=== PATIENT | male | born 1975 | race African-American/Black ===

== ENCOUNTER 2020-02-14 03:13 | Emergency (ER) | payer OTHER ==
[2020-02-14 04:16] LABS: #Basophils 0.1 thou/uL (0.0-0.2); #Eosinphils 0.4 thou/uL (0.0-0.7); #Lymphocytes 2.8 thou/uL (1.20-3.40); #Monocytes 0.9 thou/uL (0.11-0.59); #Neutrophils 5.6 thou/uL (1.40-6.50); %Basophils 0.9 % (0.0-1.0); %Eosinophils 3.7 % (0.0-10.0); %Lymphocytes 28.5 % (21.0-51.0); %Monocytes 9.5 % (0.0-10.0); %Neutrophils 57.5 % (42.0-75.0); Hemoglobin 15.3 g/dL (14.0-18.0); Mean Corpuscular HGB CONC 35.5 g/dL (32.0-36.0); Mean Corpuscular Hemoglobin 30.1 pg (27.0-31.0); Mean Corpuscular Volume 84.6 fL (78.0-98.0); Mean Platelet Volume 9.3 fL (7.4-10.4); Platelet Count 264 thou/uL (130-400); White Blood Cell (WBC) Count 9.8 thou/uL (4.8-10.8)
[2020-02-14 04:40] LABS: ALT (SGPT) 20 U/L (8-55); AST (SGOT) 18 U/L (5-34); Albumin 4.3 g/dL (3.5-5.0); Alkaline Phosphatase 72 U/L (40-110); Anion Gap 12 mmol/L (10-20); BUN (Urea Nitrogen) 9 mg/dL (8.9-20.6); Bilirubin, Total 0.7 mg/dL (0.2-1.2); Calc. Creatinine Clearance 0 mL/min (70-130); Calcium 9.2 mg/dL (7.8-10.44); Carbon Dioxide 28 mmol/L (22-29); Chloride 102 mmol/L (98-107); Estimated GFR-MDRD 69; Globulin 3.5 g/dL (2.4-3.5); Glucose 102 mg/dL (70-105); Lipase 15 U/L (8-78); Protein, Total 7.8 g/dL (6.0-8.3); Sodium 138 mmol/L (136-145)
[2020-02-14] MEDS ORDERED: Clindamycin/D5W 900 mg/50 ml Premix Bag ONE (06:10)
[2020-02-14] MEDS ORDERED: Lidocaine 1% (PF) 30 ML VIAL ONE (06:29)
--- NOTE | 2020-02-14 07:52 | CT ---
PRELIMINARY REPORT/[facility]/EMERGENCY AFTER HOURS PROCEDURE: ABDOMINAL AND PELVIC CT WITH IV CONTRAST Technique: Multiple IV contrast-enhanced axial CT images were obtained through the abdomen and pelvis . Multiplanar reformatted images were provided. History: Pain at site of recent hernia repair. Comparison: None Findings: No acute basilar lung abnormality. The liver and pancreas are unremarkable. The spleen and both adrenal glands appear normal. The gallbladder and biliary system are unremarkable. Both kidneys appear normal. The bladder is unremarkable. The bowel appears normal. The appendix appears normal. There is an ill-defined approximately 4.8 cm AP by 4.7 cm transverse by 4.4 cm craniocaudal area of s ubcutaneous fluid density, edema and inflammatory fat stranding near the midline of the anterior abdo villa wall in the periumbilical region presumably at site of reported recent hernia repair. Faint pe ripheral enhancement noted on several images. There is overlying skin thickening. Inflammatory guerra ges extend below the rectus sheath into the intraperitoneal fat. There is no evidence of recurrent h ernia. Subjacent bowel loops are unremarkable. No bowel obstruction noted. No intraperitoneal flui d collection. Impression: Focal area of subcutaneous fluid density and inflammatory phlegmon with faint incomplete peripheral e nhancement along the midline of the anterior abdominal wall at site of presumed umbilical hernia repa ir. Findings are most compatible with developing abscess. Well-defined organized abscess chua are not seen at this time however follow-up is advised. ELECTRONICALLY SIGNED BY: Romeo Contreras MD Feb 14, 2020 4:28:13 AM CDT This report is intended for review by the ordering physician only, in accordance of law. If you recei ve this report in error, please call [facility] at [phone]. FINAL REPORT EMERGENT AFTER HOURS CT OF THE ABDOMEN AND PELVIS WITH CONTRAST: FINDINGS/IMPRESSION: I agree with the findings and impression given in the preliminary report per [facility] physici an. There is inflammatory change surrounding the umbilicus likely secondary to a developing abscess.
[2020-02-14] MEDS ORDERED: Iopamidol 370 76% 100 ML VIAL ONE (09:11)
== END 2020-02-14 09:16 ==
LOC: ERS 03:13
DX: T81.41XA Infection following a procedure, superficial incisional surgical site, initial encounter (principal); I10 Essential (primary) hypertension; E78.5 Hyperlipidemia, unspecified; J45.909 Unspecified asthma, uncomplicated; K21.9 Gastro-esophageal reflux disease without esophagitis; F32.9 Major depressive disorder, single episode, unspecified; Z79.899 Other long term (current) drug therapy
CPT/HCPCS: 74177; 80053; 83605; 83690; 85025; 96365; 96372; J2001; J3490; Q9967